=== PATIENT | male | born 1960 ===

== ENCOUNTER 2018-04-02 13:20 | Emergency (ER) | payer OTHER ==
[~2018-04-02] VITALS: Ht 185.4 cm; Wt 78.5 kg
[2018-04-02] MEDS ORDERED: GLIPIZIDE XL2.5 MG (13:42)
[2018-04-02] MEDS ORDERED: METFORMIN HCL1000 M2 (13:42)
[2018-04-02] MEDS ORDERED: VASOTEC5 MG (13:43)
[2018-04-02] MEDS ORDERED: ZOCOR20 MG (13:43)
== END 2018-04-02 19:04 | disposition home or self-care (01) ==
LOC: ER 13:20
DX: E11.65 Type 2 diabetes mellitus with hyperglycemia (principal)